=== PATIENT | female | born 1980 | race Caucasian/White ===

== ENCOUNTER 2021-02-27 18:47 | Emergency (ER) | payer OTHER, SELFPAY ==
--- NOTE | ~2021-02-27 | CT_ITS ---
EXAMINATION: CT HEAD WITHOUT CONTRAST CLINICAL INFORMATION: Head injury. Severe headache. Evaluate for fracture. COMPARISON: None TECHNIQUE: Contiguous axial imaging was performed from the skull base to vertex without intravenous administration of contrast. This CT examination was performed using dose optimization techniques as appropriate, variously including the following: *Automated exposure control *Adjustment of mA and/or kV according to patient size (this includes techniques or standardized protocols for targeted exams where dose is matched to indication/reason for exam; i.e. extremities or head) *Use of iterative reconstruction technique DLP: 676 mGy-cm FINDINGS: There is no evidence of acute intracranial hemorrhage or territorial infarction. No abnormal mass effect or midline shift is seen. Diaz to white matter differentiation is well preserved. No extra-axial fluid collections are identified. The ventricles are normal in size. There is no abnormal attenuation within the brain parenchyma. The osseous structures and soft tissues are normal. The mastoid air cells and visualized portions of the paranasal sinuses are well aerated. CT/CT head/brain wo con IMPRESSION: No acute intracranial pathology.
[2021-02-27 19:13] VITALS: BP 153/87; PULSE 105; RESP 16; TEMP 36.6; O2SAT 99; BMI 23.8
[2021-02-27 19:34] VITALS: BP 140/86; PULSE 98; RESP 11; TEMP 36.9; O2SAT 98
[2021-02-27 20:01] LABS: Glucose, Whole Blood 459 mg/dL (60-115)
[2021-02-27 20:02] LABS: MANUAL DIFF FLAG NO
[2021-02-27 20:04] LABS: Basophils Percent Auto 0.4 % (0-2); Eosinophils Absolute Auto 0.1 X10*3/uL (0.0-0.4); Eosinophils Percent Auto 1.4 % (0-4); Hematocrit 36.2 % (37-47); Imm Gran Abs Auto 0.01 X10*3/uL (0.00-0.03); Imm Gran Pct Auto 0.1 % (0.0-0.4); Lymphocytes Absolute Auto 1.8 X10*3/uL (1.2-4.9); Lymphocytes Percent Auto 25.5 % (20-40); Mean Corpuscular HGB Conc 33.1 g/dl (31.0-35.0); Mean Corpuscular Hemoglobin 28.1 pg (27.0-33.0); Mean Corpuscular Volume 84.8 fL (80-98); Mean Platelet Volume 9.5 fL (9.4-12.3); Monocytes Absolute Auto 0.4 X10*3/uL (0.1-1.2); Monocytes Percent Auto 6.1 % (2-11); Neutrophils Absolute Auto 4.8 X10*3/uL (2.0-8.3); Neutrophils Percent Auto 66.5 % (45-73); Platelet Count 436 X10*3/uL (160-400); Red Blood Count 4.27 X10*6/uL (4.20-5.50); Red Cell Distribution Width 13.6 % (11.0-16.0); White Blood Count 7.2 X10*3/uL (4.8-10.8)
[2021-02-27 20:29] VITALS: BP 123/70; PULSE 98; RESP 13; O2SAT 98
[2021-02-27] MEDS: Ketorolac Tromethamine 30 MG/ML VIAL IVPUSH (20:55)
[2021-02-27] MEDS: 0.9 % Sodium Chloride 1,000 ML 999 ML IV (20:55)
[2021-02-27] MEDS: Metoclopramide HCl 10 MG/2 ML VIAL IVPUSH (20:55)
[2021-02-27] MEDS: diphenhydrAMINE HCL 50 MG/ML VIAL 25 MG IVPUSH (20:55)
[2021-02-27 21:45] VITALS: BP 134/78; PULSE 86; RESP 16; O2SAT 99
[2021-02-27 22:06] LABS: Alanine Aminotransferase < 6 U/L (0-31); Albumin Level 4.1 g/dL (3.5-5.0); Alkaline Phosphatase 100 U/L (39-117); Anion Gap 15 (12-20); Aspartate Amino Transferase 10 U/L (5-31); Bilirubin Total 0.3 mg/dL (0.0-1.0); Blood Urea Nitrogen 14 mg/dL (9-16); Calcium 9.6 mg/dL (8.4-10.2); Carbon Dioxide 21 mmol/L (22-29); Chloride 104 mmol/L (96-108); Creatinine Clr Calc Pharmacy 61.6; Estimated Glomerular Filt Rate > 60; Glucose Random 432 mg/dL (60-115); Potassium 4.7 mmol/L (3.3-5.1); Sodium 135 mmol/L (135-145); Total Protein 6.8 g/dL (6.5-8.0)
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
[2021-02-27 23:08] VITALS: BP 142/91; PULSE 86; RESP 18; O2SAT 98
[2021-02-27 23:12] LABS: Glucose, Whole Blood 281 mg/dL (60-115)
== END 2021-02-27 23:28 | disposition home or self-care (01) ==
PROVIDERS: Emergency Provider Emergency Medicine Emergency Medical Services; PCP Internal Medicine
DX: S39.012A Strain of muscle, fascia and tendon of lower back, initial encounter (principal); S29.012A Strain of muscle and tendon of back wall of thorax, initial encounter; S09.90XA Unspecified injury of head, initial encounter; E11.65 Type 2 diabetes mellitus with hyperglycemia; Z79.4 Long term (current) use of insulin; V43.52XA Car driver injured in collision with other type car in traffic accident, initial encounter; Y93.9 Activity, unspecified; Y92.410 Unspecified street and highway as the place of occurrence of the external cause; Y99.9 Unspecified external cause status
CPT/HCPCS: 36415; 70450; 80053; 82947; 85025; 96361; 96374; 96375; 99284; 99285; J1200; J1885; J2765

== ENCOUNTER 2021-11-25 16:41 | Emergency (ER) | payer OTHER, SELFPAY ==
[2021-11-25 17:07] VITALS: BP 166/64; PULSE 75; RESP 16; TEMP 36.8; O2SAT 100; BMI 23.8
[2021-11-25 18:00] VITALS: BP 170/72; PULSE 65; RESP 16; TEMP 36.7; O2SAT 100
--- NOTE | 2021-11-25 18:33 | ECG_ITS ---
Test Reason : SYNCOPE Blood Pressure : / mmHG Vent. Rate : 064 BPM Atrial Rate : 064 BPM P-R Int : 112 ms QRS Dur : 080 ms QT Int : 454 ms P-R-T Axes : 000 075 065 degrees QTc Int : 468 ms Normal sinus rhythm Normal ECG When compared with ECG of 23-JAN-2017 08:39, Vent. rate has decreased BY 55 BPM Referred By: Eunice Villalta Electronically Signed By:ANDREI GONZALEZ MD
[2021-11-25 19:04] LABS: Glucose, Whole Blood 277 mg/dL (60-115)
--- NOTE | 2021-11-25 19:11 | ED.NAVMDI ---
HPI - Nausea/Vomiting/Diarrhea General Chief complaint: Nausea/Vomiting/Diarrhea Stated complaint: vomitting blood, diabetic, BKA? Time Seen by Provider: 11/25/21 18:32 Source: patient Mode of arrival: ambulatory Limitations: no limitations History of Present Illness HPI Narrative: Patient type 1 diabeticBeen vomiting for last 2 days was at [facility] yesterday still vomiting and she came here patient was not in DKA yesterday blood sugar on arrival was 277 patient complaining of upper abdominal pain no fever no chills no cough patient had similar episodes in the past denies any substance abuse vomitus initially was clear now is blood tinged no melena Related Data Previous Rx's Medication Instructions Recorded cyclobenzaprine 10 mg tablet 10 mg PO TID PRN #20 tab 02/27/21 lorazepam 1 mg tablet (Ativan) 1 mg PO TID PRN #20 tab 11/25/21 prochlorperazine maleate 10 mg 10 mg PO Q8H PRN #20 tab 11/25/21 tablet (Compazine) Allergies Allergy/AdvReac Type Severity Reaction Status Date / Time Penicillins Allergy Severe HIVES; Verified 11/25/21 17:07 DIFFICULTY BREATHING onion [ONION] Allergy Mild MOUTH Verified 02/27/21 20:54 ITCHING penicillin V Allergy Unknown Hives Verified 02/27/21 20:54 gabapentin AdvReac Headache Verified 02/27/21 20:54 Review of Systems Review of Systems: Yes all other systems are reviewed and are negative [facility] Past Medical History Medical History DKA (diabetic ketoacidosis) Heart attack IDDM (insulin dependent diabetes mellitus) Social History Social History Alcohol intake: never Patient Tobacco Use Status: Current everyday Tobacco user Smoked in Last 30 Days: Yes Use of substances other than those prescribed or required for medical reasons: No Advance Directives: No Advance Directives Information Provided: Yes Physical Exam Vital Signs: Vital Signs: Last Vital Signs Temp 98.0 F 11/25/21 18:00 Pulse 76 11/25/21 22:00 Resp 16 11/25/21 22:00 BP 143/75 H 11/25/21 22:00 Pulse Ox 99 11/25/21 20:00 BMI result Body Mass Index 23.8 Appearance: Alert. Oriented X3. Moderate distress anxious Eyes: PERRLA, ENT: Pharynx normal. Oral Mucosa moist Neck: Normal inspection. Neck supple. CVS: Normal heart rate and rhythm. Pulses normal. Respiratory: No respiratory distress. Equal air entry bilateral, Abdomen: Soft, tenderness in epigastric area, no rebound tenderness or guarding, Bowel sounds are present, no mass palpable, no CVA tenderness Skin: Skin warm and dry. Normal skin color. Normal skin turgor. Extremities: No lower extremity edema. No calf tenderness Neuro: Oriented X 3. No motor deficit. MDM - Nausea/Vomiting/Diarrhea Lab Data Result diagrams: 11/25/21 19:25 11/25/21 19:25 Labs: Lab Results 11/25/21 11/25/21 11/25/21 Range/Units 17:12 19:25 19:25 WBC 15.6 H (4.8-10.8) X10*3/uL RBC 3.88 L (4.20-5.50) X10*6/uL Hgb 10.8 L (12.0-16.0) g/dl Hct 33.2 L (37.0-47.0) % MCV 85.6 (80.0-98.0) fL MCH 27.8 (27.0-33.0) pg MCHC 32.5 (31.0-35.0) g/dl RDW 13.7 (11.0-16.0) % Plt Count 383 (160-400) X10*3/uL MPV 10.0 (9.4-12.3) fL Immature Gran % (Auto) 0.4 (0.0-0.4) % Neut % (Auto) 90.0 H (45-73) % Lymph % (Auto) 5.9 L (20-40) % [place] % (Auto) 3.5 (2-11) % Eos % (Auto) 0.0 (0-4) % Baso % (Auto) 0.2 (0-2) % Lymph # (Auto) 0.9 L (1.2-4.9) X10*3/uL [place] # (Auto) 0.6 (0.1-1.2) X10*3/uL Eos # (Auto) 0.0 (0.0-0.4) X10*3/uL Baso # (Auto) 0.0 (0.0-0.2) X10*3/uL Abs Immat Gran (auto) 0.07 H (0.00-0.03) X10*3/uL Absolute Neuts (auto) 14.1 H (2.0-8.3) x10*3/uL Absolute Nucleated RBC 0.000 (0.0-0.012) X10*3/uL Nucleated RBC % (auto) 0.0 (0.0-0.2) /100WBC O2 Saturation ABG pH at Pt Temp ABG pH (Temp Correct) ABG pCO2 at Pt Temp ABG pCO2 (Temp Corrct ABG pO2 at Pt Temp ABG pO2 (Temp Correct ABG HCO3 ABG Base Excess (Actual) VBG pH (7.32-7.43) VBG pCO2 mmHg VBG pO2 mmHg VBG HCO3 (22-26) mmol/L VBG O2 Saturation % VBG Base Excess mmol/L Sodium 139 (135-145) mmol/L Potassium 4.3 (3.3-5.1) mmol/L Chloride 101 (96-108) mmol/L Carbon Dioxide 24 (22-29) mmol/L Anion Gap 18 (12-20) BUN 19 H (9-16) mg/dL Creatinine 0.78 (0.5-1.4) mg/dL Estim Creat Clear Calc 73.5 Estimated GFR > 60 POC Glucose 277 H (60-115) mg/dL Random Glucose 277 H (60-115) mg/dL Calcium 9.4 (8.4-10.2) mg/dL Magnesium 1.7 (1.6-2.6) mg/dL Total Bilirubin 0.6 (0.0-1.0) mg/dL Direct Bilirubin 0.2 (0.0-0.5) mg/dL AST 23 D (5-31) U/L ALT 21 (0-31) U/L Alkaline Phosphatase 77 D (39-117) U/L Total Protein 7.1 (6.5-8.0) g/dL Albumin 4.2 (3.5-5.0) g/dL Lipase 5 L (8-78) U/L Urine Color Urine Appearance Urine pH (5.0-8.0) Ur Specific [place] (1.005-1.025) Urine Protein (NEG-TRACE) MG/DL Urine Glucose (UA) (NEG) MG/DL Urine Ketones (NEG) MG/DL Urine Blood (NEG) Urine Nitrite (NEG) Ur Leukocyte Esterase (NEG) Urine RBC (0) /HPF Urine WBC (0-4) /HPF Ur Squamous Epith Cells /LPF Urine Bacteria /LPF Urine Mucus /LPF Urine Test (NEGATIVE) Urine Opiates Screen (Not Detect) Urine Fentanyl Screen (Not Detect) Ur Barbiturates Screen (Not Detect) Ur Phencyclidine Scrn (Not Detect) Ur Amphetamines Screen (Not Detect) U Benzodiazepines Scrn (Not Detect) Urine Cocaine Screen (Not Detect) U Marijuana (THC) Screen (Not Detect) Acetone, Qual (Negative) 11/25/21 11/25/21 11/25/21 Range/Units 19:25 19:25 19:28 WBC (4.8-10.8) X10*3/uL RBC (4.20-5.50) X10*6/uL Hgb (12.0-16.0) g/dl Hct (37.0-47.0) % MCV (80.0-98.0) fL MCH (27.0-33.0) pg MCHC (31.0-35.0) g/dl RDW (11.0-16.0) % Plt Count (160-400) X10*3/uL MPV (9.4-12.3) fL Immature Gran % (Auto) (0.0-0.4) % Neut % (Auto) (45-73) % Lymph % (Auto) (20-40) % [place] % (Auto) (2-11) % Eos % (Auto) (0-4) % Baso % (Auto) (0-2) % Lymph # (Auto) (1.2-4.9) X10*3/uL [place] # (Auto) (0.1-1.2) X10*3/uL Eos # (Auto) (0.0-0.4) X10*3/uL Baso # (Auto) (0.0-0.2) X10*3/uL Abs Immat Gran (auto) (0.00-0.03) X10*3/uL Absolute Neuts (auto) (2.0-8.3) x10*3/uL Absolute Nucleated RBC (0.0-0.012) X10*3/uL Nucleated RBC % (auto) (0.0-0.2) /100WBC O2 Saturation Cancelled ABG pH at Pt Temp Cancelled ABG pH (Temp Correct) Cancelled ABG pCO2 at Pt Temp Cancelled ABG pCO2 (Temp Corrct Cancelled ABG pO2 at Pt Temp Cancelled ABG pO2 (Temp Correct Cancelled ABG HCO3 Cancelled ABG Base Excess (Actual) Cancelled VBG pH 7.43 (7.32-7.43) VBG pCO2 32 mmHg VBG pO2 63 mmHg VBG HCO3 21 L (22-26) mmol/L VBG O2 Saturation 89.0 % VBG Base Excess -1.5 mmol/L Sodium (135-145) mmol/L Potassium (3.3-5.1) mmol/L Chloride (96-108) mmol/L Carbon Dioxide (22-29) mmol/L Anion Gap (12-20) BUN (9-16) mg/dL Creatinine (0.5-1.4) mg/dL Estim Creat Clear Calc Estimated GFR POC Glucose (60-115) mg/dL Random Glucose (60-115) mg/dL Calcium (8.4-10.2) mg/dL Magnesium (1.6-2.6) mg/dL Total Bilirubin (0.0-1.0) mg/dL Direct Bilirubin (0.0-0.5) mg/dL AST (5-31) U/L ALT (0-31) U/L Alkaline Phosphatase (39-117) U/L Total Protein (6.5-8.0) g/dL Albumin (3.5-5.0) g/dL Lipase Cancelled (8-78) U/L Urine Color Urine Appearance Urine pH (5.0-8.0) Ur Specific [place] (1.005-1.025) Urine Protein (NEG-TRACE) MG/DL Urine Glucose (UA) (NEG) MG/DL Urine Ketones (NEG) MG/DL Urine Blood (NEG) Urine Nitrite (NEG) Ur Leukocyte Esterase (NEG) Urine RBC (0) /HPF Urine WBC (0-4) /HPF Ur Squamous Epith Cells /LPF Urine Bacteria /LPF Urine Mucus /LPF Urine Test (NEGATIVE) Urine Opiates Screen (Not Detect) Urine Fentanyl Screen (Not Detect) Ur Barbiturates Screen (Not Detect) Ur Phencyclidine Scrn (Not Detect) Ur Amphetamines Screen (Not Detect) U Benzodiazepines Scrn (Not Detect) Urine Cocaine Screen (Not Detect) U Marijuana (THC) Screen (Not Detect) Acetone, Qual Negative (Negative) 11/25/21 11/25/21 11/25/21 Range/Units 22:38 22:38 22:38 WBC (4.8-10.8) X10*3/uL RBC (4.20-5.50) X10*6/uL Hgb (12.0-16.0) g/dl Hct (37.0-47.0) % MCV (80.0-98.0) fL MCH (27.0-33.0) pg MCHC (31.0-35.0) g/dl RDW (11.0-16.0) % Plt Count (160-400) X10*3/uL MPV (9.4-12.3) fL Immature Gran % (Auto) (0.0-0.4) % Neut % (Auto) (45-73) % Lymph % (Auto) (20-40) % [place] % (Auto) (2-11) % Eos % (Auto) (0-4) % Baso % (Auto) (0-2) % Lymph # (Auto) (1.2-4.9) X10*3/uL [place] # (Auto) (0.1-1.2) X10*3/uL Eos # (Auto) (0.0-0.4) X10*3/uL Baso # (Auto) (0.0-0.2) X10*3/uL Abs Immat Gran (auto) (0.00-0.03) X10*3/uL Absolute Neuts (auto) (2.0-8.3) x10*3/uL Absolute Nucleated RBC (0.0-0.012) X10*3/uL Nucleated RBC % (auto) (0.0-0.2) /100WBC O2 Saturation ABG pH at Pt Temp ABG pH (Temp Correct) ABG pCO2 at Pt Temp ABG pCO2 (Temp Corrct ABG pO2 at Pt Temp ABG pO2 (Temp Correct ABG HCO3 ABG Base Excess (Actual) VBG pH (7.32-7.43) VBG pCO2 mmHg VBG pO2 mmHg VBG HCO3 (22-26) mmol/L VBG O2 Saturation % VBG Base Excess mmol/L Sodium (135-145) mmol/L Potassium (3.3-5.1) mmol/L Chloride (96-108) mmol/L Carbon Dioxide (22-29) mmol/L Anion Gap (12-20) BUN (9-16) mg/dL Creatinine (0.5-1.4) mg/dL Estim Creat Clear Calc Estimated GFR POC Glucose (60-115) mg/dL Random Glucose (60-115) mg/dL Calcium (8.4-10.2) mg/dL Magnesium (1.6-2.6) mg/dL Total Bilirubin (0.0-1.0) mg/dL Direct Bilirubin (0.0-0.5) mg/dL AST (5-31) U/L ALT (0-31) U/L Alkaline Phosphatase (39-117) U/L Total Protein (6.5-8.0) g/dL Albumin (3.5-5.0) g/dL Lipase (8-78) U/L Urine Color YELLOW Urine Appearance CLEAR Urine pH 6.0 (5.0-8.0) Ur Specific [place] 1.025 (1.005-1.025) Urine Protein NEG (NEG-TRACE) MG/DL Urine Glucose (UA) 500 H (NEG) MG/DL Urine Ketones >=80 (NEG) MG/DL Urine Blood TRACE (NEG) Urine Nitrite NEG (NEG) Ur Leukocyte Esterase NEG (NEG) Urine RBC 0-2 (0) /HPF Urine WBC 0-2 (0-4) /HPF Ur Squamous Epith Cells TRACE /LPF Urine Bacteria 4+ /LPF Urine Mucus TRACE /LPF Urine Test NEGATIVE (NEGATIVE) Urine Opiates Screen Not Detected (Not Detect) Urine Fentanyl Screen Not Detected (Not Detect) Ur Barbiturates Screen Not Detected (Not Detect) Ur Phencyclidine Scrn Not Detected (Not Detect) Ur Amphetamines Screen Not Detected (Not Detect) U Benzodiazepines Scrn Not Detected (Not Detect) Urine Cocaine Screen Not Detected (Not Detect) U Marijuana (THC) Screen POSITIVE H (Not Detect) Acetone, Qual (Negative) Discharge Plan Discharge Clinical Impression: Cyclic vomiting syndrome Patient Disposition: Home, Self-Care Instructions: Diabetic Gastroparesis (DC), Cyclic Vomiting Syndrome (ED) Additional Instructions: Drink plenty of fluids Have small meals more frequently Medication as advised and follow with your PCP Prescriptions: New prochlorperazine maleate [Compazine] 10 mg tablet 10 mg PO Q8H PRN (Reason: nausea and vomiting) Qty: 20 0RF lorazepam [Ativan] 1 mg tablet 1 mg PO TID PRN (Reason: anxiety) Qty: 20 0RF No Action cyclobenzaprine 10 mg tablet 10 mg PO TID PRN (Reason: muscle pain or spasm) Qty: 20 0RF Interventions: ED Discharge Assessment Last Done: 11/25/21 23:53 Discharge Date/Time: 11/25/21 23:57
[2021-11-25] MEDS: 0.9 % Sodium Chloride 1,000 ML 999 ML IV ×2 (19:26)
[2021-11-25] MEDS: ondansetron HCL 4 MG/2 ML VIAL IVPUSH (19:26)
[2021-11-25 19:33] LABS: MANUAL DIFF FLAG NO
[2021-11-25 19:34] LABS: Basophils Percent Auto 0.2 % (0-2); Hematocrit 33.2 % (37.0-47.0); Hemoglobin 10.8 g/dl (12.0-16.0); Imm Gran Abs Auto 0.07 X10*3/uL (0.00-0.03); Imm Gran Pct Auto 0.4 % (0.0-0.4); Lymphocytes Absolute Auto 0.9 X10*3/uL (1.2-4.9); Lymphocytes Percent Auto 5.9 % (20-40); Mean Corpuscular HGB Conc 32.5 g/dl (31.0-35.0); Mean Corpuscular Hemoglobin 27.8 pg (27.0-33.0); Mean Corpuscular Volume 85.6 fL (80.0-98.0); Monocytes Absolute Auto 0.6 X10*3/uL (0.1-1.2); Monocytes Percent Auto 3.5 % (2-11); Neutrophils Absolute Auto 14.1 x10*3/uL (2.0-8.3); Platelet Count 383 X10*3/uL (160-400); Red Blood Count 3.88 X10*6/uL (4.20-5.50); Red Cell Distribution Width 13.7 % (11.0-16.0); White Blood Count 15.6 X10*3/uL (4.8-10.8)
[2021-11-25 19:35] LABS: Venous Blood Gas Refer to POC result
[2021-11-25 19:39] LABS: VBG Base Excess -1.5 mmol/L; VBG HCO3 21 mmol/L (22-26); VBG pCO2 32 mmHg; VBG pH 7.43 (7.32-7.43); VBG pO2 63 mmHg
--- NOTE | 2021-11-25 19:42 | PC.NURSE ---
pt a&ox3, vss, intermittent dry heaving/vomiting - seen at [facility] yesterday for the same, hx gastritis, blood tinged vomit. provider in room. 22G IV placed right upper forearm. labs drawn. flds started. medicated per provider order. lab results pending. no new orders at this tie.
[2021-11-25 19:44] LABS: Acetone, serum QL Negative (Negative)
[2021-11-25 19:57] LABS: Alanine Aminotransferase 21 U/L (0-31); Albumin Level 4.2 g/dL (3.5-5.0); Alkaline Phosphatase 77 U/L (39-117); Anion Gap 18 (12-20); Aspartate Amino Transferase 23 U/L (5-31); Bilirubin Direct 0.2 mg/dL (0.0-0.5); Bilirubin Total 0.6 mg/dL (0.0-1.0); Blood Urea Nitrogen 19 mg/dL (9-16); Calcium 9.4 mg/dL (8.4-10.2); Carbon Dioxide 24 mmol/L (22-29); Chloride 101 mmol/L (96-108); Creatinine Clr Calc Pharmacy 73.5; Estimated Glomerular Filt Rate > 60; Glucose Random 277 mg/dL (60-115); Lipase 5 U/L (8-78); Magnesium 1.7 mg/dL (1.6-2.6); Potassium 4.3 mmol/L (3.3-5.1); Sodium 139 mmol/L (135-145); Total Protein 7.1 g/dL (6.5-8.0)
[2021-11-25 20:00] VITALS: BP 126/72; PULSE 79; RESP 16; O2SAT 99
[2021-11-25] MEDS: Pantoprazole Sodium 40 MG/10 ML VIAL IVPUSH (20:00)
--- NOTE | 2021-11-25 20:00 | PC.NURSE ---
patient a&ox3, iv inserted, labs drawn ekg performed, pt medicated per order, vss, will continue to monitor.
[2021-11-25] MEDS: Prochlorperazine Edisylate 10 MG/2 ML VIAL IVPUSH (20:38)
[2021-11-25] MEDS: LORazepam 2 MG/ML VIAL 1 MG IVPUSH (20:38)
--- NOTE | 2021-11-25 20:43 | PC.NURSE ---
pt continues to vomit, pt medicated per order, ivf running slowly per order, call rodriguez within reach, will continue to monitor.
--- NOTE | 2021-11-25 21:05 | PC.NURSE ---
pt sleeping, resting comfortably.
[2021-11-25 22:00] VITALS: BP 143/75; PULSE 76; RESP 16
--- NOTE | 2021-11-25 22:19 | PC.NURSE ---
pt sleeping, vss, appears to be resting comfortably, flds finished and disconnected. no new orders at this time.
--- NOTE | 2021-11-25 22:41 | PC.NURSE ---
ambulated pt to restroom - slightly unsteady on feet, but ok w 1:1 assistance. urine sample obtained. pt given crackers and césar anais per provider request.
[2021-11-25 22:47] LABS: Appearance Urine CLEAR; Color Urine YELLOW; Glucose Urine UA 500 MG/DL (NEG); Leukocyte Esterase Urine NEG (NEG); Nitrite Urine NEG (NEG); Specific Gravity - Urine 1.025 (1.005-1.025); UACC Culture Trigger NO; Urine Blood TRACE (NEG); Urine Ketones >=80 MG/DL (NEG); Urine Protein NEG (NEG-TRACE)
[2021-11-25 22:48] LABS: UPreg QC Valid YES; Urine Pregnancy NEGATIVE (NEGATIVE)
[2021-11-25 22:56] LABS: Bacteria Urine 4+ /LPF; Mucus Urine TRACE /LPF; RBC Urine 0-2 /HPF (0); Squamous Epithelial Cell Urine TRACE /LPF; WBC Urine 0-2 /HPF (0-4)
[2021-11-25 22:59] LABS: Amphetamine Screen Urine Not Detected (Not Detect); Barbiturates, Urine Not Detected (Not Detect); Benzodiazepines Screen Urine Not Detected (Not Detect); Cannabinoid Screen Urine POSITIVE (Not Detect); Cocaine Screen Urine Not Detected (Not Detect); Fentanyl, urine Not Detected (Not Detect); Opiate Screen Urine Not Detected (Not Detect); Phencyclidine Screen Urine Not Detected (Not Detect)
== END 2021-11-25 23:57 | disposition home or self-care (01) ==
PROVIDERS: Emergency Medicine; Emergency Provider Internal Medicine
DX: R11.15 Cyclical vomiting syndrome unrelated to migraine (principal); N39.0 Urinary tract infection, site not specified; E11.9 Type 2 diabetes mellitus without complications; F17.200 Nicotine dependence, unspecified, uncomplicated; Z79.4 Long term (current) use of insulin; F12.90 Cannabis use, unspecified, uncomplicated; Z79.899 Other long term (current) drug therapy
CPT/HCPCS: 36415; 80048; 80076; 80307; 81001; 81025; 82009; 82803; 82947; 83690; 83735; 85025; 87086; 87088; 87186; 93005; 96361; 96374; 96375; 96376; 99284; 99285; J2060; J2405

== ENCOUNTER 2021-12-06 13:44 | Emergency (ER) | payer OTHER, SELFPAY ==
--- NOTE | ~2021-12-06 | XR_ITS ---
EXAMINATION: RIGHT TIBIA AND FIBULA, RIGHT FOOT IS AND RIGHT ANKLE 3 VIEWS EACH CLINICAL INFORMATION: Pain after fall COMPARISON: None TECHNIQUE: 3 views of right ankle, right foot, right tibia and fibula. FINDINGS: There is mildly displaced fracture of the distal fibula with tiny evulsion fragments are seen laterally and medially and consistent with the appearance of James C type fracture, with fracture lines involve the syndesmosis, considered to be unstable XR/XR tibia fibula RT 2V IMPRESSION: James C type fracture of distal fibula on the right
--- NOTE | ~2021-12-06 | XR_ITS ---
EXAMINATION: RIGHT TIBIA AND FIBULA, RIGHT FOOT IS AND RIGHT ANKLE 3 VIEWS EACH CLINICAL INFORMATION: Pain after fall COMPARISON: None TECHNIQUE: 3 views of right ankle, right foot, right tibia and fibula. FINDINGS: There is mildly displaced fracture of the distal fibula with tiny evulsion fragments are seen laterally and medially and consistent with the appearance of James C type fracture, with fracture lines involve the syndesmosis, considered to be unstable XR/XR ankle RT min 3V IMPRESSION: James C type fracture of distal fibula on the right
--- NOTE | ~2021-12-06 | XR_ITS ---
EXAMINATION: RIGHT TIBIA AND FIBULA, RIGHT FOOT IS AND RIGHT ANKLE 3 VIEWS EACH CLINICAL INFORMATION: Pain after fall COMPARISON: None TECHNIQUE: 3 views of right ankle, right foot, right tibia and fibula. FINDINGS: There is mildly displaced fracture of the distal fibula with tiny evulsion fragments are seen laterally and medially and consistent with the appearance of James C type fracture, with fracture lines involve the syndesmosis, considered to be unstable XR/XR foot RT 2V IMPRESSION: James C type fracture of distal fibula on the right
[2021-12-06 14:09] VITALS: BP 92/71; PULSE 83; RESP 18; TEMP 36.4; O2SAT 98; BMI 24.7
--- NOTE | 2021-12-06 15:59 | ED.EXTPRO ---
HPI - Extremity Problem General Chief complaint: Extremity Problem Stated complaint: r foot pain unable to walk Time Seen by Provider: 12/06/21 14:46 Source: patient Mode of arrival: ambulatory History of Present Illness HPI Narrative: 41-year-old female with a past medical history of diabetes, DKA, CT, presenting to the ED complaining of right foot/ ankle pain and swelling s/p twisting injury on Wednesday. Patient admits she was recently admitted to [facility] for 4 days for DKA, and tried to get up in the middle the night without help and slipped/twisted right ankle. Has been minimally ambulatory since incident. Reports [employer]. Denies numbness, tingling, weakness, fever, SOB MD Complaint: extremity pain, extremity swelling, joint swelling and joint pain Onset (ago): day(s) Related Data Previous Rx's Medication Instructions Recorded cyclobenzaprine 10 mg tablet 10 mg PO TID PRN #20 tab 02/27/21 lorazepam 1 mg tablet (Ativan) 1 mg PO TID PRN #20 tab 11/25/21 prochlorperazine maleate 10 mg 10 mg PO Q8H PRN #20 tab 11/25/21 tablet (Compazine) nitrofurantoin 100 mg PO Q12H 7 Days #14 cap 11/29/21 monohydrate/macrocrystals 100 mg capsule (Macrobid) hydrocodone 5 mg-acetaminophen 325 1 tab PO Q8H PRN 3 Days #9 tab 12/06/21 mg tablet ibuprofen 800 mg tablet 800 mg PO Q8H PRN #14 tab 12/06/21 Allergies Allergy/AdvReac Type Severity Reaction Status Date / Time Penicillins Allergy Severe HIVES; Verified 12/06/21 14:12 DIFFICULTY BREATHING onion [ONION] Allergy Mild MOUTH Verified 12/06/21 14:12 ITCHING penicillin V Allergy Unknown Hives Verified 12/06/21 14:12 gabapentin AdvReac Headache Verified 12/06/21 14:12 Review of Systems Review of Systems: Constitutional: No Fever, No Chills ENT/Mouth: No Ear Pain, No Nasal Congestion, No sore throat, No Rhinorrhea, No Swallowing Difficulty Cardiovascular: No Chest Pain, No SOB Respiratory: No Cough, No Sputum Gastrointestinal: No Nausea, No Vomiting, No Diarrhea, No Constipation, No Abdominal pain Genitourinary:, No Dysuria, No Urinary Frequency, No Urgency, No Flank Pain Musculoskeletal: + joint pain, No Myalgias, + Joint Swelling Skin: No Skin Lesions, No rash Neuro: No Weakness, No Numbness, No Paresthesias Yes all other systems are reviewed and are negative [facility] Past Medical History Attestation statement: The following information was validated with the patient. Medical History DKA (diabetic ketoacidosis) Heart attack IDDM (insulin dependent diabetes mellitus) Social History Social History Alcohol intake: never Patient Tobacco Use Status: Current everyday Tobacco user Advance Directives: No Advance Directives Information Provided: No Physical Exam Vital Signs: Vital Signs: Last Vital Signs Temp 97.5 F 12/06/21 14:09 Pulse 83 12/06/21 14:09 Resp 18 12/06/21 14:09 BP 92/71 12/06/21 14:09 Pulse Ox 98 12/06/21 14:09 BMI result Body Mass Index 24.7 Const: Other: Appears in pain General: cooperative, healthy appearing and no acute distress Orientation/consciousness: patient oriented x3 Limitations: no limitations HEENT: Head: Yes normal to inspection and Yes atraumatic Ears: hearing grossly normal bilaterally General nose exam: Normal external nose present Face and sinus: Yes normal facial exam Eyes: General: appearance normal, both eyes and all related structures EOM: EOMs intact bilaterally Neck: Neck: Yes normal visual inspection and Yes no meningeal signs Resp: Effort & Inspection: normal respiratory effort and no respiratory distress Auscultation: clear to auscultation bilaterally Cardio: Rate: regular rate Heart sounds: S1 normal heart sound present and S2 normal heart sound present Peripheral pulses: dorsalis pedis present Skin: Rashes: no rashes Wounds: no wounds Neuro: General: patient oriented x3, tone normal and no meningeal signs Extrem: Other: Right ankle and foot with noted swelling, + severely tender to palpation greater to lateral aspect. Limited ROM of ankle secondary to pain/swelling. Toe ROM intact. Neurovascular intact. Sensation intact to light touch. Knee nontender with full range of motion intact. Calf nontender. No pitting edema Course Course Course Narrative: XR ankle RT min 3V/XR foot RT 2V IMPRESSION: James C type fracture of distal fibula on the right >> patient placed in posterior short-leg with stirrup and supplied with crutches to be nonweightbearing. Orthopedics aware for follow-up. MDM - Extremity (Nontraumatic) MDM Narrative Medical decision making narrative: 41-year-old female with a past medical history of diabetes, DKA, CT, presenting to the ED complaining of right foot/ ankle pain and swelling s/p twisting injury on Wednesday. On exam mildly hypotensive, appears in pain, physical exam as above. Concern for fracture versus sprain. DVT on differential due to patient's recent hospitalization, if x-rays negative will obtain venous duplex ultrasound. Unlikely PE. No evidence of cellulitis at this time Plan: X-rays Medical Records Attestation: I reviewed the patient's medical records. Lab Data Attestation: I reviewed the patient's lab results. Discharge Plan Discharge Clinical Impression: Fracture of distal end of fibula Patient Disposition: Home, Self-Care Instructions: Ankle Fracture (DC) Additional Instructions: You have a fracture of her distal fibula, this is an unstable fracture DO NOT BEAR ANY WEIGHT ON YOUR RIGHT LEG KEEP SPLINT ON, DRY, AND CLEAN. YOU NEED TO FOLLOW-UP WITH THE [employer] A[employer] TEACHER, CALL WEDNESDAY/WEDNESDAY TO MAKE AN APPOINTMENT If pain becomes unbearable, your leg/toes become numb or swollen remove splint and return to the ED immediately Take ibuprofen and Tylenol for pain [place] was an opiate pain medication, take only when pain is severe for the next 3 days. Be aware [place] has Tylenol mixed in, do not exceed 4 g in 1 day Prescriptions: New ibuprofen 800 mg tablet 800 mg PO Q8H PRN (Reason: pain) Qty: 14 0RF hydrocodone-acetaminophen 5-325 mg tablet 1 tab PO Q8H PRN (Reason: pain, severe) 3 Days Qty: 9 0RF No Action cyclobenzaprine 10 mg tablet 10 mg PO TID PRN (Reason: muscle pain or spasm) Qty: 20 0RF prochlorperazine maleate [Compazine] 10 mg tablet 10 mg PO Q8H PRN (Reason: nausea and vomiting) Qty: 20 0RF lorazepam [Ativan] 1 mg tablet 1 mg PO TID PRN (Reason: anxiety) Qty: 20 0RF nitrofurantoin monohyd/m-cryst [Macrobid] 100 mg capsule 100 mg PO Q12H 7 Days Qty: 14 0RF Rx Instructions: must administer with a meal/food Referrals: Hillary Bella PA-C [Physician Cell Room Supervisor] - 3 days (call for an appointment) Stand Alone Forms: Work/School Release
[2021-12-06] MEDS: oxyCODONE HCl Immed Release 5 MG TABLET PO (16:36)
[2021-12-06] MEDS: Ketorolac Tromethamine 30 MG/ML VIAL IM (16:37)
== END 2021-12-06 17:20 | disposition home or self-care (01) ==
PROVIDERS: Emergency Provider Emergency Medicine; PCP Internal Medicine
DX: S82.831A Other fracture of upper and lower end of right fibula, initial encounter for closed fracture (principal); E11.9 Type 2 diabetes mellitus without complications; I25.2 Old myocardial infarction; Z79.4 Long term (current) use of insulin; X50.1XXA Overexertion from prolonged static or awkward postures, initial encounter; Y93.9 Activity, unspecified; Y92.9 Unspecified place or not applicable; Y99.9 Unspecified external cause status; Z88.0 Allergy status to penicillin
CPT/HCPCS: 73590; 73610; 73620; 96372; 99283; 99284; J1885

== ENCOUNTER 2021-12-25 07:36 | Outpatient (REF) | payer OTHER, SELFPAY ==
--- NOTE | ~2021-12-25 | XR_ITS ---
EXAMINATION: XR ANKLE, RIGHT CLINICAL INFORMATION: Pain COMPARISON: Prior study December 07, 2019 TECHNIQUE: AP, lateral, and mortise views of the right ankle. FINDINGS: Redemonstration of unhealed fracture of the distal fibula. Included distal tibia and tibial plafonds are intact. Ankle mortise is intact. XR/XR ankle RT min 3V IMPRESSION: Unhealed nondisplaced distal fibular fracture.
== END 2021-12-25 07:37 | disposition home or self-care (01) ==
LOC: HO.HOSX 07:36
PROVIDERS: Visit Provider Physician Assistant
DX: S82.831D Other fracture of upper and lower end of right fibula, subsequent encounter for closed fracture with routine healing (principal); X58.XXXD Exposure to other specified factors, subsequent encounter
CPT/HCPCS: 29405; 73610; 99202

== ENCOUNTER 2022-01-22 10:09 | Outpatient (REF) | payer OTHER, SELFPAY ==
--- NOTE | ~2022-01-22 | XR_ITS ---
EXAMINATION: XR ANKLE, RIGHT CLINICAL INFORMATION: Pain COMPARISON: 12/25/2021 TECHNIQUE: AP, lateral, and mortise views of the right ankle. FINDINGS: Unhealed mildly displaced distal fibular fracture, there is bone remodeling there is approximately 3 mm gap of the fracture site., fracture gap remains visible, no significant angulation or displacement. Distal tibia, talus, subtalar joints are normal. There are vascular calcifications. XR/XR ankle RT min 3V IMPRESSION: Redemonstration of unhealed, mildly displaced distal fibular fracture.
== END 2022-01-22 10:10 | disposition home or self-care (01) ==
LOC: HO.HOSX 10:09
PROVIDERS: Visit Provider Physician Assistant
DX: S82.831A Other fracture of upper and lower end of right fibula, initial encounter for closed fracture (principal)
CPT/HCPCS: 73610; 99212

== ENCOUNTER 2022-02-20 08:17 | Outpatient (REF) | payer OTHER, SELFPAY ==
--- NOTE | ~2022-02-20 | XR_ITS ---
EXAMINATION: XR ANKLE, RIGHT CLINICAL INFORMATION: Fibular fracture. Follow-up. COMPARISON: Radiographs right ankle 01/22/2022, 12/25/2021, 12/06/2021. TECHNIQUE: Right ankle is imaged in 3 views. FINDINGS: Distal fibular fracture is again visible. There is mild increased attenuation at the end of the fracture fragments again noted. No significant callus formation. No change in alignment. The medial and posterior malleoli appear intact. No dislocation or destructive process. There are calcifications again seen vasculature. XR/XR ankle RT min 3V IMPRESSION: -Distal fibular fracture without significant change in alignment. -No significant callus formation.
== END 2022-02-20 08:18 | disposition home or self-care (01) ==
LOC: HO.HOSX 08:17
PROVIDERS: Visit Provider Physician Assistant
DX: S82.831D Other fracture of upper and lower end of right fibula, subsequent encounter for closed fracture with routine healing (principal); X58.XXXD Exposure to other specified factors, subsequent encounter
CPT/HCPCS: 73610; 99212

== ENCOUNTER 2022-03-12 11:16 | Outpatient (REF) | payer OTHER, SELFPAY ==
--- NOTE | ~2022-03-12 | XR_ITS ---
EXAMINATION: XR ANKLE, RIGHT CLINICAL INFORMATION: Pain. COMPARISON: Prior radiographs, most recently 02/20/2022. TECHNIQUE: AP, lateral, and mortise views of the right ankle. FINDINGS: Bony alignment and mineralization are normal. The ankle mortise is intact. There is a persistent oblique fracture line seen of the distal right fibula. Again, this shows approximately 2 mm of lateral displacement. No new callus formation is seen. There is no dislocation. No significant right ankle joint effusion is seen. Boehler's angle is normal. There is no calcaneal spur. There are diffuse atherosclerotic calcifications. XR/XR ankle RT min 3V IMPRESSION: There is stable alignment of a mildly displaced distal right fibular fracture. No new callus formation is seen.
== END 2022-03-12 11:17 | disposition home or self-care (01) ==
LOC: HO.HOSX 11:16
PROVIDERS: Visit Provider Physician Assistant
DX: M25.571 Pain in right ankle and joints of right foot (principal)
CPT/HCPCS: 73610

== ENCOUNTER 2022-03-30 07:52 | Outpatient (REF) | payer OTHER, SELFPAY ==
--- NOTE | ~2022-03-30 | XR_ITS ---
EXAMINATION: XR ANKLE, RIGHT CLINICAL INFORMATION: Fracture COMPARISON: Previous x-rays most recent February 2021 TECHNIQUE: AP, lateral, and mortise views of the right ankle. FINDINGS: There is no change in the fracture of the distal fibular shaft. Alignment is unchanged with slight posterior and lateral displacement of the distal fibula with respect to the more proximal shaft. Fracture line appears unchanged. No other fracture is seen. The ankle mortise is normal. There is soft tissue arterial calcification. XR/XR ankle RT min 3V IMPRESSION: No change in the distal fibular shaft fracture from previous exams.
== END 2022-03-30 07:53 | disposition home or self-care (01) ==
LOC: HO.HOSX 07:52
PROVIDERS: Visit Provider Physician Assistant
DX: M25.571 Pain in right ankle and joints of right foot (principal)
CPT/HCPCS: 73610

== ENCOUNTER 2022-05-15 13:04 | Outpatient (REF) | payer OTHER, SELFPAY ==
--- NOTE | ~2022-05-15 | XR_ITS ---
EXAMINATION: XR ANKLE, RIGHT CLINICAL INFORMATION: Pain. COMPARISON: Multiple priors, most recent right ankle radiographs dated 03/30/2022. TECHNIQUE: AP, lateral, and mortise views of the right ankle. FINDINGS: Redemonstration of a distal fibular fracture in unchanged anatomic alignment when compared to the prior examination. Mild interval increase in new bone/callus formation. No new fracture or dislocation. The ankle mortise is maintained. No lytic or blastic osseous lesion. Atherosclerotic calcifications. XR/XR ankle RT min 3V IMPRESSION: Distal fibular fracture in unchanged anatomic alignment with mild interval increase in new bone/callus formation.
== END 2022-05-15 13:05 | disposition home or self-care (01) ==
LOC: HO.HOSX 13:04
PROVIDERS: Visit Provider Physician Assistant
DX: M25.571 Pain in right ankle and joints of right foot (principal)
CPT/HCPCS: 73610

== ENCOUNTER 2022-06-15 | Outpatient (REF) | payer OTHER, SELFPAY ==
--- NOTE | ~2022-06-15 | XR_ITS ---
EXAMINATION: XR ANKLE, RIGHT CLINICAL INFORMATION: Pain COMPARISON: 05/15/2022 TECHNIQUE: AP, lateral, and mortise views of the right ankle. FINDINGS: Horizontally oriented fracture of the distal fibula with mild posterior displacement of the distal fracture fragment and some osseous bridging suggestive of early healing. Ankle mortise is preserved. XR/XR ankle RT min 3V IMPRESSION: Healing fracture of the distal fibula with mild posterior displacement of the distal fracture fragment.
== END 2022-06-15 00:01 | disposition home or self-care (01) ==
LOC: HO.HOSX
PROVIDERS: Visit Provider Physician Assistant
DX: S82.831D Other fracture of upper and lower end of right fibula, subsequent encounter for closed fracture with routine healing (principal); G62.9 Polyneuropathy, unspecified; X58.XXXD Exposure to other specified factors, subsequent encounter
CPT/HCPCS: 73610; 99212

== ENCOUNTER 2022-07-27 13:18 | Outpatient (REF) | payer OTHER, SELFPAY ==
--- NOTE | ~2022-07-27 | XR_ITS ---
EXAMINATION: XR ANKLE, RIGHT CLINICAL INFORMATION: Pain COMPARISON: None TECHNIQUE: AP, lateral, and mortise views of the right ankle. FINDINGS: There is a healed distal fibular fracture. No visible acute fracture, dislocation or subluxation seen. The ankle mortise and subtalar joints are normal. The soft tissues are normal. XR/XR ankle RT min 3V IMPRESSION: Healed distal fibular fracture. No visible acute fracture or dislocation seen.
== END 2022-07-27 13:19 | disposition home or self-care (01) ==
LOC: HO.HOSX 13:18
PROVIDERS: Visit Provider Physician Assistant
DX: S82.831A Other fracture of upper and lower end of right fibula, initial encounter for closed fracture (principal)
CPT/HCPCS: 73610; 99212

== ENCOUNTER 2022-09-22 09:39 | Outpatient (REF) | payer OTHER, SELFPAY ==
--- NOTE | ~2022-09-22 | XR_ITS ---
EXAMINATION: XR ANKLE, RIGHT CLINICAL INFORMATION: Pain. COMPARISON: 07/27/2022 and studies dating back to 12/25/2021. TECHNIQUE: 3 views of the right ankle. FINDINGS: Fracture line of the distal right fibular fracture is no longer evident. Alignment of fracture fragments is anatomic. Ankle joint is maintained. No acute fracture or dislocation is seen. No significant soft tissue swelling is noted. There are prominent vascular calcifications present. XR/XR ankle RT min 3V IMPRESSION: Appearance of healed distal right fibular fracture.
== END 2022-09-22 09:40 | disposition home or self-care (01) ==
LOC: HO.HOSX 09:39
PROVIDERS: Visit Provider Physician Assistant
DX: S82.831D Other fracture of upper and lower end of right fibula, subsequent encounter for closed fracture with routine healing (principal)
CPT/HCPCS: 73610; 99212

== ENCOUNTER 2024-01-03 15:47 | Emergency (ER) | payer OTHER, SELFPAY ==
--- NOTE | ~2024-01-03 | CT_ITS ---
EXAMINATION: CT HEAD WITHOUT CONTRAST CLINICAL INFORMATION: Minor head trauma. Dizziness. COMPARISON: CT scan of the head 02/27/2021. TECHNIQUE: Contiguous axial imaging was performed from the skull base to vertex without intravenous administration of contrast. This CT examination was performed using dose optimization techniques as appropriate, variously including the following: *Automated exposure control *Adjustment of mA and/or kV according to patient size (this includes techniques or standardized protocols for targeted exams where dose is matched to indication/reason for exam; i.e. extremities or head) *Use of iterative reconstruction technique DLP: 607 mGy-cm FINDINGS: There is no acute intracranial hemorrhage or abnormal extra-axial collection. No intracranial mass effect or midline shift. Lateral and third ventricles are normal. No hydrocephalus. Diaz-white matter differentiation is preserved and there is no evidence of acute territorial infarct. The calvarium and skull base are grossly intact. No mastoid or middle ear effusion. No active paranasal sinus disease. Globes and orbits are grossly symmetric. CT/CT head/brain wo IV con IMPRESSION: Unremarkable CT scan of the head. No evidence of acute territorial infarct or hemorrhage.
[2024-01-03 15:58] VITALS: BP 165/93; PULSE 84; RESP 20; TEMP 36.6; O2SAT 100; BMI 19.8
--- NOTE | 2024-01-03 16:00 | ED.HEATRA ---
HPI - Head Injury General Chief complaint: Head Injury Stated complaint: 40 pounds fell on head Time Seen by Provider: 01/03/24 18:41 Source: patient Mode of arrival: ambulatory Limitations: no limitations History of Present Illness HPI Narrative: 43 yo female presenting for evaluation of headache, blurred vision, dizziness and vomiting x1 after 40lb weight fell off of a shelf and hit her in the head around 1pm. No LOC but saw stars. Not on anticoagulation. Sustained small lac to the forehead that was bleeding. AAO X3 on arrival. neurologically intact in triage. MD Complaint: head injury and head pain Onset (ago): hour(s) Place: home Loss of Consciousness: no Location of injury: frontal Severity: moderate Quality: aching Radiation: none Other Injuries: laceration Associated symptoms: nausea and other (dizziness) Related Data Home Medications ?Medication ?Instructions ?Recorded ?Confirmed amitriptyline 25 mg tablet 0 mg PO 12/25/21 blood-glucose meter (FreeStyle #1 ea 12/25/21 Lite Meter kit) insulin glargine 100 unit/mL (3 unit subcut 12/25/21 mL) subcutaneous pen (Lantus Solostar U-100 Insulin) pen needle, diabetic 31 gauge x #1,200 ea 12/25/2101/05 (BD Ultra-Fine Short Pen Needle) pregabalin 50 mg capsule 50 mg PO BID 12/25/21 tramadol 50 mg tablet 50 mg PO BID PRN pain 12/25/21 cholecalciferol (vitamin D3) 25 25 mcg PO DAILY 05/15/22 mcg (1,000 unit) tablet (Vitamin D3) magnesium oxide 400 mg (241.3 mg 400 mg PO DAILY 05/15/22 magnesium) tablet cetirizine 10 mg tablet 10 mg PO DAILY 06/15/22 Previous Rx's ?Medication ?Instructions ?Recorded cyclobenzaprine 10 mg tablet 10 mg PO TID PRN muscle pain or 02/27/21 spasm #20 tabs lorazepam 1 mg tablet (Ativan) 1 mg PO TID PRN anxiety #20 tabs 11/25/21 prochlorperazine maleate 10 mg 10 mg PO Q8H PRN nausea and 11/25/21 tablet (Compazine) vomiting #20 tabs nitrofurantoin 100 mg PO Q12H 7 days #14 caps 11/29/21 monohydrate/macrocrystals 100 mg capsule (Macrobid) ibuprofen 800 mg tablet 800 mg PO Q8H PRN pain #14 tabs 12/06/21 walker #1 ea 12/25/21 Allergies Allergy/AdvReac Type Severity Reaction Status Date / Time Penicillins Allergy Severe HIVES; Verified 01/03/24 16:02 DIFFICULTY BREATHING onion [ONION] Allergy Mild MOUTH Verified 01/03/24 16:02 ITCHING penicillin V Allergy Unknown Hives Verified 01/03/24 16:02 gabapentin AdvReac Headache Verified 01/03/24 16:02 mushroom Allergy hives, Uncoded 06/15/22 12:40 swelling, difficulty breathing Review of Systems Review of Systems: Yes all other systems are reviewed and are negative [facility] Past Medical History Medical History DKA (diabetic ketoacidosis) Heart attack IDDM (insulin dependent diabetes mellitus) Surgical History Hx of appendectomy Hx of section Social History Social History Alcohol intake: never Patient Tobacco Use Status: Current everyday Tobacco user Advance Directives: No Advance Directives Information Provided: No Do you have a plan to hurt others: No Plan Current occupational status: employed Current occupation: print production associate Physical Exam Vital Signs: Vital Signs: Last Vital Signs Temp 98 F 01/03/24 18:47 Pulse 84 01/03/24 18:47 Resp 20 01/03/24 18:47 BP 165/93 H 01/03/24 18:47 Pulse Ox 100 01/03/24 18:47 O2 Del Method Room Air 01/03/24 18:47 BMI result Body Mass Index 19.8 Appearance: Alert. Oriented X3. No acute distress. Head: normocephalic, small superficial abrasion on the right side of the hairline. No active bleeding. Minimal surrounding swelling. Not Eyes: Pupils equal, round and reactive to light. ENT: Pharynx normal. No tonsillar swelling or exudate. Neck: Normal inspection. Neck supple. No midline tenderness. CVS: Normal heart rate and rhythm. Pulses normal. Respiratory: No respiratory distress. Breath sounds normal. Skin: Skin warm and dry. Normal skin color. Normal skin turgor. No rashes. Extremities: No lower extremity edema. No joint swelling. Neuro/psych: Oriented X 3. No motor deficit. No sensory deficit. CN II-XII intact. Normal speech and cognition. Steady gait. Acting appropriately. Course Course Course Narrative: This is a Rapid Medical Examination (RME) performed by Alex Pierson PA-C in triage. Full HPI, ROS, assessment and treatment plan per primary provider in the Main ED. 43 yo female presenting for evaluation of headache, blurred vision, dizziness and vomiting x1 after 40lb weight fell off of a shelf and hit her in the head about 2 hours ago. No LOC but saw stars. Not on anticoagulation. Sustained small lac to the forehead that was bleeding. AAO X3 on arrival. neurologically intact in triage. Plan: CT head Medical Decision Making Medical Decision Making MDM Narrative: 43 yo female presenting to the ER for evaluation of head injury sustained at 13:00 today. Reports 40 lb of weight hitting her in the head. No LOC. Minor abrasion that is not in need of any suture or wound repair. He was exhibiting some dizziness and nausea, brief blurry vision which has improved. On examination neurologically she is intact, nonfocal, strength is equal and symmetrical throughout. Pupils are round and reactive to light. CT scan of the head was performed and is normal. Patient was in the waiting room for 3 hours and had improvement in her symptoms. She would like to be discharged home. Comfortable discharge home with supportive care. We discussed the results of her CT scan, concussion precautions and return precautions. Stable for DC Differential Diagnosis Differential Diagnoses: The differential diagnosis associated with the presentation includes Closed head injury, concussion, low clinical suspicion for ICH/SAH, epidural hematoma Independent Interpretation I performed an independent interpretation of an: CT Scan Interpretation: no edema or bleed, agree w/ radiology Radiology Impression Discussion of test interpretation with radiology: I have reviewed the radiologist's reading. Radiologist Impression: EXAMINATION: CT HEAD WITHOUT CONTRAST CLINICAL INFORMATION: Minor head trauma. Dizziness. COMPARISON: CT scan of the head 02/27/2021. TECHNIQUE: Contiguous axial imaging was performed from the skull base to vertex without intravenous administration of contrast. This CT examination was performed using dose optimization techniques as appropriate, variously including the following: *Automated exposure control *Adjustment of mA and/or kV according to patient size (this includes techniques or standardized protocols for targeted exams where dose is matched to indication/reason for exam; i.e. extremities or head) *Use of iterative reconstruction technique DLP: 607 mGy-cm FINDINGS: There is no acute intracranial hemorrhage or abnormal extra-axial collection. No intracranial mass effect or midline shift. Lateral and third ventricles are normal. No hydrocephalus. Diaz-white matter differentiation is preserved and there is no evidence of acute territorial infarct. The calvarium and skull base are grossly intact. No mastoid or middle ear effusion. No active paranasal sinus disease. Globes and orbits are grossly symmetric. CT/CT head/brain wo IV con IMPRESSION: Unremarkable CT scan of the head. No evidence of acute territorial infarct or hemorrhage. External Record Review External record reviewed: Outpatient record and Prior outpatient labs Prescription Management I considered prescription management with: Pain Medication Critical Care Time Critical Care Time Critical Care Time: No Discharge Plan Discharge Clinical Impression: Closed head injury Patient Disposition: Home, Self-Care Instructions: Head Injury (ED) Additional Instructions: Your CT scan today was normal. Your symptoms are consistent with a mild concussion. Treatment is rest, both mental and physical rest. Avoid screen time. Take Motrin & Tylenol as needed for headaches. Follow-up with your doctor. If you develop new or worsening symptoms call 911 or come back to the ER for further evaluation. Prescriptions: No Action cyclobenzaprine 10 mg tablet 10 mg PO TID PRN (Reason: muscle pain or spasm) Qty: 20 0RF ibuprofen 800 mg tablet 800 mg PO Q8H PRN (Reason: pain) Qty: 14 0RF prochlorperazine maleate [Compazine] 10 mg tablet 10 mg PO Q8H PRN (Reason: nausea and vomiting) Qty: 20 0RF lorazepam [Ativan] 1 mg tablet 1 mg PO TID PRN (Reason: anxiety) Qty: 20 0RF nitrofurantoin monohyd/m-cryst [Macrobid] 100 mg capsule 100 mg PO Q12H 7 Days Qty: 14 0RF Rx Instructions: must administer with a meal/food (DME) pen needle, diabetic [BD Ultra-Fine Short Pen Needle] 31 gauge x 5/16 needle See Rx Instructions subcut .MEDSUPPLY Qty: 1200 Rx Instructions: As directed tramadol 50 mg tablet 50 mg PO BID PRN (Reason: pain) Lantus Solostar U-100 Insulin 100 unit/mL (3 mL) insulin pen subcut amitriptyline 25 mg tablet 0 mg PO (DME) blood-glucose meter [FreeStyle Lite Meter] Kit See Rx Instructions .ROUTE TID Qty: 1 Rx Instructions: As directed pregabalin 50 mg capsule 50 mg PO BID (DME) walker Misc See Rx Instructions .ROUTE .MEDSUPPLY Qty: 1 0RF Rx Instructions: Folding front wheeled walker magnesium oxide 400 mg (241.3 mg magnesium) tablet 400 mg PO DAILY cholecalciferol (vitamin D3) [Vitamin D3] 25 mcg (1,000 unit) tablet 25 mcg PO DAILY cetirizine 10 mg tablet 10 mg PO DAILY Stand Alone Forms: Work/School Release Interventions: ED Discharge Assessment Last Done: 01/03/24 18:47 Discharge Date/Time: 01/03/24 18:56 Print Language: Romanian
[2024-01-03 18:47] VITALS: BP 165/93; PULSE 84; RESP 20; TEMP 36.6; O2SAT 100
== END 2024-01-03 18:56 | disposition home or self-care (01) ==
LOC: HO.ED 18:53
PROVIDERS: Emergency Provider Internal Medicine
DX: S09.90XA Unspecified injury of head, initial encounter (principal); R51.9 Headache, unspecified; Y29.XXXA Contact with blunt object, undetermined intent, initial encounter; Y93.9 Activity, unspecified; Y92.9 Unspecified place or not applicable; Y99.8 Other external cause status
CPT/HCPCS: 70450; 99282; 99284